=== PATIENT | female | born 1990 | race African-American/Black ===

== ENCOUNTER 2017-09-05 15:36 | Emergency (ER) | payer OTHER ==
[~2017-09-05] VITALS: Ht 160 cm; Wt 59.0 kg
[~2017-09-05 15:36] MED LIST: PRED10TA23 PO
[2017-09-05 15:39] VITALS: BP 132/80
[2017-09-05] MEDS ORDERED: morphine 4 MG/ML inj SYRINge IV ONE (15:50)
[2017-09-05] MEDS ORDERED: triamcinolone acetonide 40mg/ml inj IM ONE (16:05)
== END 2017-09-05 16:33 | disposition home or self-care (01) ==
LOC: ER 15:37
DX: J30.2 Other seasonal allergic rhinitis (principal); F12.10 Cannabis abuse, uncomplicated; Z88.0 Allergy status to penicillin; Z88.8 Allergy status to other drugs, medicaments and biological substances; Z79.899 Other long term (current) drug therapy
CPT/HCPCS: 96372; 99283; J3301